=== PATIENT | male | born 1975 | race Caucasian/White ===

== ENCOUNTER 2023-12-28 19:07 | Inpatient (IN) | payer SELFPAY ==
[2023-12-28] MEDS ORDERED: HYDROmorphone 0.5 MG/0.5 ML SYRINGE IV PRN (19:15)
[2023-12-28] MEDS ORDERED: Ondansetron 4 MG/2 ML VIAL IV PRN (19:15)
[2023-12-28] MEDS ORDERED: NS 1,000 ML IV SCH (19:15)
--- NOTE | 2023-12-28 19:23 | NUR ---
PATIENT ARRIVED FROM [facility]IA [facility] AROUND 1845 PATIENT WAS NOT AVAILABLE IN THE SYSTEM AT THIS TIME. , PATIENTS VSS, PATIENT IV S/L. PATIENT ORIENTED TO ROOM. CALL LIGHT WITHIN REACH. IN REPORT THIS RN WAS INFORMED PATIENT HAD AN ALLERGIC REACTION TO ZOSYN, CAUSING FULL BODY HIVES, AROUND 1730. ON QUICK ASSESSMENT NONE VISUALIZED, PATIENT STATES HE HAS NO DIFFICULTY BREATHING, SOB OR PAIN AT THIS TIME. PATINET AWARE OF NPO STATUS AND SURGERY CONSULT.
--- NOTE | 2023-12-28 19:25 | NUR ---
THIS RN INFORMED DR ORLANDO VERBALLY OF PATIENT ARRIVAL, HOWEVER NOT AT SYSTEM AT THIS TIME 1849
[2023-12-28 19:28] VITALS: BP 139/93; PULSE 73; TEMP 98.5
[2023-12-28] MEDS ORDERED: ZYLOPRIM 300MG300 MG PO (19:29)
[2023-12-28] MEDS ORDERED: PROAIR HFA0.09 MG/AC IH (19:33)
[2023-12-28] MEDS ORDERED: Pantoprazole 40 MG in NS 10 ML IV SCH (19:38)
[2023-12-28] MEDS ORDERED: Albuterol 0.083% Neb Soln 2.5 MG/3 ML UD IH PRN (20:00)
[2023-12-28] MEDS ORDERED: Meropenem 1 G in Water For Injection,Sterile 20 ML IV SCH (20:00)
[2023-12-28] MEDS ORDERED: Nicotine 21 MG DAILY PATCH TD SCH (20:15)
[2023-12-28 21:00] VITALS: BP_SYST 136
[2023-12-28 23:22] VITALS: BP 129/82; PULSE 62; TEMP 97.4
[2023-12-28 23:35] VITALS: BP 136/85; PULSE 65; TEMP 98.2
[2023-12-29] VITALS (11 sets, daily range): BP systolic 131–165; BP diastolic 81–96; PULSE 64–73; TEMP 97.6–98.6
--- NOTE | 2023-12-29 07:00 | NUR ---
awake resting in bed, bedside shift report received from JAZMIN Mendoza
[2023-12-29 07:17] LABS: CALCIUM 10.1 mg/dL (8.4-10.2); CREATININE, serum 0.82 mg/dL (0.72-1.25); POTASSIUM 4.1 mEq/L (3.5-4.5)
[2023-12-29] MEDS ORDERED: Allopurinol 300 MG TAB PO SCH (09:00)
--- NOTE | 2023-12-29 09:23 | NUR ---
Initial visit; Patient thanked Controller Repairer And Tester for looking in on him and offering God's blessings. Patient states he has no spiritual needs. Controller Repairer And Tester wished him well.
--- NOTE | 2023-12-29 09:40 | NUR ---
in bed watching TV, full assessment completed, see interventions for further info, denies pain or needs at this time
[2023-12-29] MEDS ORDERED: Meropenem 500 MG in Water For Injection,Sterile 10 ML IV SCH (12:00)
--- NOTE | 2023-12-29 13:00 | NUR ---
resting in bed and denies needs
--- NOTE | 2023-12-29 15:53 | NUR ---
[employer] Director Welfare and student, Ivette met with patient to discuss discharge planning. Patient lives alone in [place] and sees Dr. Ballard for primary care. Patient gets medications from [facility] and does not use any DME. Patient is employed at [employer] and is independent with ADLS. Patient listed the mother of his son, Marychuy (ph#[phone]) as his point of contact. Patient's son, Quang Baez is 19 and would be his legal next of kin. Patient does not have DPOA-HC and is not interested in completing one at this time. Discharge Plan: Home
--- NOTE | 2023-12-29 17:30 | NUR ---
Dr Palma in to see patient
--- NOTE | 2023-12-29 18:18 | NUR ---
remains resting in bed, taking water and tolerates well, denies needs
--- NOTE | 2023-12-29 18:59 | NUR ---
bedside shift report given to JAZMIN Jerome
[2023-12-29 20:25] LABS: BASO % 0.2 % (0.0-2.0); EOS % 0.2 % (0.0-4.0); GRAN % 75.5 % (42.2-75.2); LYMPH # 2.6 K/mm3 (1.2-3.4); LYMPH % 17.6 % (20.0-51.0); MEAN CELL VOLUME 88 fl (80.0-100.0); MEAN CORPUSCULAR HEMOGLOBIN 30 pg (27-31); MEAN CORPUSCULAR HGB CONC 33 g/dl (33.0-37.0); MEAN PLATELET VOLUME 8.8 fl (7.4-10.4); MONO # 0.9 K/mm3 (0.1-0.6); MONO % 5.9 % (1.7-9.3); PLATELET COUNT 431 K/mm3 (130-400); RED BLOOD COUNT 5.09 M/mm3 (4.20-5.60); REDCELL DISTRIBUTION WIDTH-CV 13.2 % (11.5-14.5)
[2023-12-30] VITALS (13 sets, daily range): BP systolic 123–161; BP diastolic 76–93; PULSE 57–62; TEMP 98.1–98.6
--- NOTE | 2023-12-30 05:47 | NUR ---
PT ALERT AND ORIENTED. WAS HAVING MILD GASTRIC PAIN DECIDED TO WALK THE HALLS.
[2023-12-30 08:31] LABS: BASO % 0.2 % (0.0-2.0); EOS # 0.1 K/mm3 (0.0-0.7); EOS % 0.5 % (0.0-4.0); GRAN # 8.5 K/mm3 (1.4-6.5); GRAN % 79.4 % (42.2-75.2); HEMATOCRIT 42.3 % (42.0-52.0); LYMPH # 1.5 K/mm3 (1.2-3.4); LYMPH % 13.5 % (20.0-51.0); MEAN CELL VOLUME 90 fl (80.0-100.0); MEAN CORPUSCULAR HEMOGLOBIN 30 pg (27-31); MEAN CORPUSCULAR HGB CONC 33 g/dl (33.0-37.0); MEAN PLATELET VOLUME 8.7 fl (7.4-10.4); MONO # 0.7 K/mm3 (0.1-0.6); PLATELET COUNT 355 K/mm3 (130-400); REDCELL DISTRIBUTION WIDTH-CV 13.4 % (11.5-14.5)
--- NOTE | 2023-12-30 08:40 | NUR ---
PT LAYING IN BED UPON ENTERING. ASSESSMENT DONE, MEDS GIVEN PER ORDER. PT REPORTS MILD LOWER ABDOMINAL PAIN, DENIES NEED FOR PRN. NS RUNNING AT 125 IN LAC PER ORDER. NICOTINE PATCH PLACED TO RIGHT UPPER ARM, NO OLD PATCH NOTED. PT DENIES NEEDS. BED IN LOWEST POSITION, CALL LIGHT IN REACH.
[2023-12-30 08:47] LABS: CREATININE, serum 0.85 mg/dL (0.72-1.25); POTASSIUM 4.2 mEq/L (3.5-4.5)
--- NOTE | 2023-12-30 09:46 | NUR ---
IV FLUIDS DISCONTINUED PER ORDER. PT DENIES NEEDS. BED IN LOWEST POSITION, CALL LIGHT IN REACH.
[2023-12-31 00:30] VITALS: BP_SYST 123
--- NOTE | 2023-12-31 01:02 | NUR ---
Pt alert and oriented x4. vss, resting in bed comfortable. Pain rated 5/10, dosed with pain medication just before change of shift, per pt relieved his pain. Shift assessmnent complete pt up ad jeannine and has steady gait. Call light within reach, denies further need at this time.
[2023-12-31 03:26] VITALS: BP 135/80; PULSE 59; TEMP 98.3
[2023-12-31 04:43] VITALS: BP_SYST 135
[2023-12-31 07:35] VITALS: BP 146/86; PULSE 53; TEMP 98.1
[2023-12-31 08:44] LABS: HEMATOCRIT 41.6 % (42.0-52.0); HEMOGLOBIN 13.6 g/dl (13.5-18.0); MEAN CELL VOLUME 90 fl (80.0-100.0); MEAN CORPUSCULAR HEMOGLOBIN 30 pg (27-31); MEAN CORPUSCULAR HGB CONC 33 g/dl (33.0-37.0); MEAN PLATELET VOLUME 8.5 fl (7.4-10.4); PLATELET COUNT 346 K/mm3 (130-400); RED BLOOD COUNT 4.61 M/mm3 (4.20-5.60); REDCELL DISTRIBUTION WIDTH-CV 13.5 % (11.5-14.5)
[2023-12-31 10:20] VITALS: BP_SYST 146
--- NOTE | 2023-12-31 10:20 | NUR ---
PT LAYING IN BED UPON ENTERING. ASSESSMENT DONE, MEDS GIVEN PER ORDER. INT TO LEFT AC PATENT. PT REPORTS 6/10 ABDOMINAL PAIN AND GIVEN PRN DILAUDID. PT TOLERATING LOW FIBER DIET. PT DENIES NEEDS. BED IN LOWEST POSITION, CALL LIGHT IN REACH
[2023-12-31] MEDS ORDERED: LEVAQUIN 750MG750 M1 PO (10:45)
[2023-12-31] MEDS ORDERED: FLAGYL500 MG PO (10:46)
[2023-12-31 11:45] VITALS: BP 104/66; PULSE 105; TEMP 97.3
--- NOTE | 2023-12-31 12:00 | NUR ---
IV REMOVED AND PT DRESSED IN PERSONAL CLOTHES. PHARMACY CHANGED TO [facility] [address] PER PT REQUEST. PT REPORTS 4/10 PAIN AND GIVEN PRN NORCO. DISCHARGE INSRUCTIONS GIVEN AND PT VERBALIZED UNDERSTANDING. PT WAITING FOR RIDE.
== END 2023-12-31 12:15 | disposition home or self-care (01) | DRG 392 ==
LOC: MEDICAL 19:07
PROVIDERS: Internal Medicine; Nurse Practitioner Family; Physician Assistant; ADMIT Internal Medicine
DX: K57.20 Diverticulitis of large intestine with perforation and abscess without bleeding (principal); M10.9 Gout, unspecified; E66.01 Morbid (severe) obesity due to excess calories; J45.909 Unspecified asthma, uncomplicated; F12.10 Cannabis abuse, uncomplicated; L50.0 Allergic urticaria; T36.0X5A Adverse effect of penicillins, initial encounter; R39.198 Other difficulties with micturition; Z79.899 Other long term (current) drug therapy; Z88.1 Allergy status to other antibiotic agents; Z72.0 Tobacco use; Z91.018 Allergy to other foods
CPT/HCPCS: C9113; J1170; J2185; J7030